=== PATIENT | female | born 2000 | race Caucasian/White ===

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

== ENCOUNTER 2022-03-07 19:39 | Emergency (ER) | payer OTHER ==
[2022-03-07 19:53] VITALS: BP 128/75; PULSE 70; RESP 17; TEMP 98.7; BMI 31.3
[2022-03-07 20:09] LABS: HCG,QUALITATIVE URINE Negative
== END 2022-03-07 20:49 | disposition home or self-care (01) ==
LOC: FER 19:39
DX: N93.9 Abnormal uterine and vaginal bleeding, unspecified (principal)
CPT/HCPCS: 81003; 81015; 81025; 84703; 99283-25